=== PATIENT | male | born 1965 | race Native Hawaiian/Other Pacific Islander ===

== ENCOUNTER 2020-10-27 11:06 | Emergency (ER) | payer OTHER ==
--- NOTE | 2020-10-27 11:37 | Event Note ---
ED Screening Note Date of service: 10/27/20 Time: 11:37 ED Screening Note: Complains of red, warm, swollen left knee x2 weeks No injury No history of gout per patient No history of diabetes This initial assessment/diagnostic orders/clinical plan/treatment(s) is/are subject to change based on patients health status, clinical progression and re- assessment by fellow clinical providers in the ED. Further treatment and workup at subsequent clinical providers discretion. Patient/guardian urged not to elope from the ED as their condition may be serious if not clinically assessed and managed. Initial orders include: Labs X-ray
[2020-10-27] MEDS ORDERED: VANCOMYCIN 1,750 MG in SODIUM CHLORIDE 0.9% 500 ML 500 ML IV ONE (12:09)
--- NOTE | 2020-10-27 12:13 | XRay Report ---
Left knee 3 views INDICATION: Knee pain FINDINGS: Alignment appears normal. No acute fracture or dislocation. No large joint effusion. Signer Name: Bryan Yeh MD Signed: 10/27/2020 12:08 PM Workstation Name: [id number]
--- NOTE | 2020-10-27 12:14 | Emergency Department Report ---
ED General Adult HPI - General Chief complaint: Extremity Injury, Lower Stated complaint: LEFT KNEE PAIN Time Seen by Provider: 10/27/20 11:36 Source: patient Mode of arrival: Ambulatory Limitations: Language Barrier - History of Present Illness Initial comments: This is a 55-year-old male who states that he has had a red and swollen area near his right knee for as long as 2 weeks. Over the last 1 to 2 days it has become more red and more painful. There is a localized area of redness in the left lateral infrapatellar area. The patient denies any systemic type symptoms such as fever or chills. He states he always gets short of breath when he is wearing a mask but not otherwise. He denies cough, nausea, vomiting, diarrhea or any change in urine output. He states he has never had a staph infection in the past. He states that he does not spend prolonged time with pressure on his knees at work. He works as a tester/lift trucker. He does not complain of swelling or pain in his posterior thigh or calf. -: Gradual, week(s) Location: left, lower extremity Radiation: non-radiation Quality: aching Consistency: intermittent Improves with: none Worsens with: none Associated Symptoms: denies other symptoms Treatments Prior to Arrival: none - Related Data Previous Rx's Medication Instructions Recorded Last Taken Type Sulfamethoxazole/Trimethoprim 1 each PO BID #24 tablet 10/27/20 Unknown Rx [Bactrim DS TAB] Allergies Allergy/AdvReac Type Severity Reaction Status Date / Time No Known Allergies Allergy Unverified 10/27/20 11:31 ED Review of Systems ROS: Stated complaint: LEFT KNEE PAIN Other details as noted in HPI Constitutional: denies: chills, fever Eyes: denies: eye pain, eye discharge, vision change ENT: denies: ear pain, throat pain Respiratory: denies: cough, shortness of breath, wheezing Cardiovascular: denies: chest pain, palpitations Endocrine: no symptoms reported Gastrointestinal: denies: abdominal pain, nausea, diarrhea Genitourinary: denies: urgency, dysuria Musculoskeletal: as per HPI, other (Painful area below the knee but not in the true knee joint.). denies: back pain, joint swelling, arthralgia Skin: change in color (Localized left knee). denies: rash, lesions Neurological: denies: headache, weakness, paresthesias Psychiatric: denies: anxiety, depression Hematological/Lymphatic: denies: easy bleeding, easy bruising ED Past Medical Hx - Past Medical History Previous Medical History?: No - Surgical History Past Surgical History?: No - Social History Smoking Status: Never Smoker Substance Use Type: None - Medications Home Medications: Home Medications Medication Instructions Recorded Confirmed Last Taken Type Sulfamethoxazole/Trimethoprim 1 each PO BID #24 tablet 10/27/20 Unknown Rx [Bactrim DS TAB] ED Physical Exam - General Limitations: No Limitations General appearance: alert, in no apparent distress - Head Head exam: Present: atraumatic, normocephalic - Eye Eye exam: Present: normal appearance. Absent: scleral icterus - ENT ENT exam: Present: mucous membranes moist - Neck Neck exam: Present: normal inspection. Absent: tenderness, meningismus - Respiratory Respiratory exam: Present: normal lung sounds bilaterally. Absent: respiratory distress - Cardiovascular Cardiovascular Exam: Present: normal rhythm, tachycardia. Absent: systolic murmur, diastolic murmur, rubs, gallop - GI/Abdominal GI/Abdominal exam: Present: soft, normal bowel sounds. Absent: distended, tenderness, guarding, rebound - Rectal Rectal exam: Present: deferred - Extremities Exam Extremities exam: Present: full ROM, tenderness, other (Area of erythema and induration perhaps of 3 to 4 cm diameter below the left knee to the lateral aspect. There is no fluid in the joint. There is free range of motion of the joint without tenderness. The area is not fluctuant. ). Absent: normal inspection (There is perhaps a slight amount of fluid in the pre-patellar bursa but no redness or tenderness in that location.) - Back Exam Back exam: Present: normal inspection - Neurological Exam Neurological exam: Present: alert, oriented X3, CN II-XII intact. Absent: motor sensory deficit - Psychiatric Psychiatric exam: Present: normal affect, normal mood - Skin Skin exam: Present: warm, dry, intact, other (Indurated area as above described. Some slight general knee erythema.). Absent: rash ED Course Vital Signs 10/27/20 10/27/20 10/27/20 11:34 12:15 12:31 Temperature 98.3 F Pulse Rate 118 H 103 H 102 H Respiratory 24 28 H 33 H Rate Blood Pressure 162/103 158/86 158/86 O2 Sat by Pulse 95 94 95 Oximetry 10/27/20 10/27/20 10/27/20 13:01 13:31 14:01 Temperature Pulse Rate 98 H 98 H 93 H Respiratory 31 H 33 H 33 H Rate Blood Pressure 146/89 140/85 133/74 O2 Sat by Pulse 93 93 94 Oximetry - Reevaluation(s) Reevaluation #1: Patient with cellulitis and an indurated focus. I think staph possibly MRSA is likely. He also has an abrasion noted of the right leg. 10/27/20 14:40 10/27/20 14:42 Discussed admitting the patient to the hospital. This was my recommendation. I do not think I&D is indicated at this time. I would prefer to keep him on IV antibiotics and consult orthopedics. However the patient has declined this option. He will be placed on Bactrim. He will return for recheck tomorrow or earlier should his cellulitis extend beyond the markings I have placed on his leg/he becomes ill or develops a fever. He is also referred to orthopedics. ED Medical Decision Making - Lab Data Result diagrams: 10/27/20 11:57 10/27/20 11:57 Laboratory Results - last 24 hr 10/27/20 10/27/20 11:57 11:57 WBC 10.2 RBC 5.18 H Hgb 16.2 H Hct 47.3 H MCV 91 MCH 31 MCHC 34 RDW 13.2 Plt Count 106 L Lymph % (Auto) 15.8 [place] % (Auto) 9.1 H Eos % (Auto) 1.4 Baso % (Auto) 0.4 Lymph # (Auto) 1.6 [place] # (Auto) 0.9 H Eos # (Auto) 0.1 Baso # (Auto) 0.0 Seg Neutrophils % 73.3 H Seg Neutrophils # 7.5 Sodium 136 L Potassium 4.2 Chloride 97.9 L Carbon Dioxide 27 Anion Gap 15 BUN 10 Creatinine 1.0 Estimated GFR > 60 BUN/Creatinine Ratio 10 Glucose 142 H Uric Acid 5.3 Calcium 9.4 Total Bilirubin 0.40 AST 24 ALT 38 Alkaline Phosphatase 87 C-Reactive Protein 8.00 H Total Protein 7.9 Albumin 4.1 Albumin/Globulin Ratio 1.1 Laboratory Results - last 24 hr 10/27/20 10/27/20 10/27/20 11:57 11:57 12:30 WBC 10.2 RBC 5.18 H Hgb 16.2 H Hct 47.3 H MCV 91 MCH 31 MCHC 34 RDW 13.2 Plt Count 106 L Lymph % (Auto) 15.8 [place] % (Auto) 9.1 H Eos % (Auto) 1.4 Baso % (Auto) 0.4 Lymph # (Auto) 1.6 [place] # (Auto) 0.9 H Eos # (Auto) 0.1 Baso # (Auto) 0.0 Seg Neutrophils % 73.3 H Seg Neutrophils # 7.5 ESR 44 Sodium 136 L Potassium 4.2 Chloride 97.9 L Carbon Dioxide 27 Anion Gap 15 BUN 10 Creatinine 1.0 Estimated GFR > 60 BUN/Creatinine Ratio 10 Glucose 142 H Lactic Acid 1.30 Uric Acid 5.3 Calcium 9.4 Total Bilirubin 0.40 AST 24 ALT 38 Alkaline Phosphatase 87 C-Reactive Protein 8.00 H Total Protein 7.9 Albumin 4.1 Albumin/Globulin Ratio 1.1 Critical care attestation.: If time is entered above; I have spent that time in minutes in the direct care of this critically ill patient, excluding procedure time. ED Disposition Clinical Impression: Cellulitis of left knee Disposition: DC-01 TO HOME OR SELFCARE Is pt being admited?: No Does the pt Need Aspirin: No Condition: Stable Additional Instructions: Elevate leg. Return fever chills or redness in the leg becomes worse. A dmitting you to the hospital was an option. You have declined. You may return to see me tomorrow after 10 AM. Also follow-up with orthopedics. As discussed there is a spot that may require drainage in the future. Close follow-up is indicated. Prescriptions: Sulfamethoxazole/Trimethoprim [Bactrim DS TAB] 1 each PO BID #24 tablet Referrals: PRIMARY MD TONY [Primary Care Provider] - 3-5 Days KATIE GUDINO MD [Staff Physician] - 2-3 Days Time of Disposition: 14:43
[2020-10-27 12:56] LABS: Basophils % (Auto) 0.4 % (0.0-1.8); Eosinophils # (Auto) 0.1 K/mm3 (0.0-0.4); Eosinophils % (Auto) 1.4 % (0.0-4.3); Hematocrit 47.3 % (35.5-45.6); Hemoglobin 16.2 gm/dl (11.8-15.2); Lymphocytes # (Auto) 1.6 K/mm3 (1.2-5.4); Lymphocytes % (Auto) 15.8 % (13.4-35.0); Mean Corpuscular HGB Conc 34 % (32-34); Mean Corpuscular Volume 91 fl (84-94); Monocytes # (Auto) 0.9 K/mm3 (0.0-0.8); Monocytes % (Auto) 9.1 % (0.0-7.3); Red Blood Count 5.18 M/mm3 (3.65-5.03); Red Cell Distribution Width 13.2 % (13.2-15.2)
[2020-10-27] MEDS ORDERED: VANCOMYCIN 2,000 MG in SODIUM CHLORIDE 0.9% 500 ML 500 ML IV ONE (13:00)
[2020-10-27 13:01] LABS: Platelet Count 106 K/mm3 (140-440)
[2020-10-27 13:34] LABS: Alanine Aminotransferase 38 units/L (7-56); Albumin 4.1 g/dL (3.9-5); BUN/Creatinine Ratio 10; Blood Urea Nitrogen 10 mg/dL (9-20); Calcium 9.4 mg/dL (8.4-10.2); Hemolysis Index 10; Uric Acid 5.3 mg/dL (3.5-7.6)
[2020-10-27 13:42] LABS: Erythrocyte Sedimentation Rate 44 mm/Hr (0-20)
[2020-10-27 14:12] VITALS: BP 133/74
== END 2020-10-27 15:23 | disposition home or self-care (01) ==
LOC: ED 11:06
DX: L03.116 Cellulitis of left lower limb (principal); Z79.899 Other long term (current) drug therapy
CPT/HCPCS: 36415; 73562; 80053; 82140; 84550; 85025; 85652; 86140; 87040; 96365; 96366; 99284; J3370; J7040

== ENCOUNTER 2020-10-28 10:22 | Emergency (ER) | payer OTHER ==
--- NOTE | 2020-10-28 10:59 | Emergency Department Report ---
ED General Adult HPI - General Chief complaint: Recheck/Abnormal Lab/Rx Stated complaint: FOLLOW UP Time Seen by Provider: 10/28/20 10:53 Source: patient Mode of arrival: Ambulatory Limitations: No Limitations - History of Present Illness Initial comments: This is a 55-year-old male who I saw yesterday with a cellulitis of his left knee. He declined admission. He states he went to [facility] where his "insurance was not accepted". Therefore he only took his first Bactrim pill at about 930 this a.m. Despite this, he states he is much better. He states he can move his knee without pain. Redness has improved. He received a loading dose of vancomycin yesterday. -: days(s) Location: lower extremity Radiation: non-radiation Quality: other (Now painless) Associated Symptoms: denies other symptoms - Related Data Previous Rx's Medication Instructions Recorded Last Taken Type Sulfamethoxazole/Trimethoprim 1 each PO BID #24 tablet 10/27/20 1 Day Ago Rx [Bactrim DS TAB] ~10/27/20 Allergies Allergy/AdvReac Type Severity Reaction Status Date / Time No Known Allergies Allergy Verified 10/28/20 10:26 ED Review of Systems ROS: Stated complaint: FOLLOW UP Other details as noted in HPI Constitutional: denies: chills, fever Eyes: denies: eye pain, vision change ENT: denies: ear pain, throat pain Respiratory: denies: cough, shortness of breath Cardiovascular: denies: chest pain, palpitations Endocrine: no symptoms reported Gastrointestinal: denies: abdominal pain, nausea, diarrhea Genitourinary: denies: urgency, dysuria Musculoskeletal: as per HPI. denies: back pain, joint swelling, arthralgia Skin: denies: rash, lesions Neurological: denies: headache, weakness Psychiatric: denies: anxiety, depression Hematological/Lymphatic: denies: easy bleeding, easy bruising ED Past Medical Hx - Past Medical History Additional medical history: Seen for cellulitis yesterday - Social History Smoking Status: Never Smoker Substance Use Type: None - Medications Home Medications: Home Medications Medication Instructions Recorded Confirmed Last Taken Type Sulfamethoxazole/Trimethoprim 1 each PO BID #24 tablet 10/27/20 10/28/20 1 Day Ago Rx [Bactrim DS TAB] ~10/27/20 ED Physical Exam - General Limitations: No Limitations General appearance: alert - Head Head exam: Present: atraumatic - Eye Eye exam: Present: normal appearance - ENT ENT exam: Present: normal exam - Neck Neck exam: Present: normal inspection - GI/Abdominal GI/Abdominal exam: Present: other (No inguinal adenopathy). Absent: soft, distended, tenderness, guarding - Extremities Exam Extremities exam: Absent: normal inspection (The redness that have been marked yesterday is much improved. Patient still has a red and indurated area lateral to the patella. The prepatellar bursa does not appear to have any fluid. The red area is indurated but nonfluctuant. There is no lymphangitis.) - Neurological Exam Neurological exam: Present: alert. Absent: motor sensory deficit - Psychiatric Psychiatric exam: Present: normal affect, normal mood - Skin Skin exam: Present: other (Erythema now much more localized to the indurated area) ED Medical Decision Making - Radiology Data Patient has made progress with IV antibiotics and now has begun oral antibiotics today. He states he is much improved. I do not see anything worthy of incision and drainage right now. He is referred to orthopedics, Dr. Ortiz who is aware of the case for follow-up. Critical care attestation.: If time is entered above; I have spent that time in minutes in the direct care of this critically ill patient, excluding procedure time. ED Disposition Clinical Impression: Cellulitis of left knee Disposition: - TO HOME OR SELFCARE Is pt being admited?: No Does the pt Need Aspirin: No Condition: Stable Instructions: Cellulitis, Adult, [id number] Additional Instructions: Follow-up with the orthopedic Dr. Ortiz. Return to the emergency department fever chills or worsening signs of infection. Referrals: BARTOLOME JIMENEZ MD [Primary Care Provider] - 3-5 Days KATIE ORTIZ MD [Staff Physician] - 24 Hours Time of Disposition: 11:00
[2020-10-28 15:51] VITALS: BP 150/91
== END 2020-10-28 11:51 | disposition home or self-care (01) ==
LOC: ED 10:22
DX: L03.116 Cellulitis of left lower limb (principal); Z79.899 Other long term (current) drug therapy
CPT/HCPCS: 99281